=== PATIENT | female | born 1990 | race Caucasian/White ===

== ENCOUNTER 2021-12-10 18:18 | Observation (INO) | payer SELFPAY ==
[2021-12-10] MEDS ORDERED: Ketorolac Tromethamine 30 MG/ML VIAL ONE (19:26)
[2021-12-10] MEDS ORDERED: Midazolam HCl 2 mg/2 ml Vial ONE (19:26)
[2021-12-10] MEDS ORDERED: Piperacillin/Tazobactam 4.5 GM VIAL ONE (19:26)
[2021-12-10 19:55] LABS: #Basophils 0.1 10x3/uL (0.0-0.2); #Eosinphils 0.1 10x3/uL (0.0-0.5); #Monocytes 0.9 10x3/uL (0.0-1.1); #Neutrophils 14.1 10x3/uL (1.5-8.4); %Basophils 0.3 % (0.0-2.0); %Eosinophils 0.3 % (0.0-6.0); %Monocytes 5.3 % (0.0-10.0); %Neutrophils 79.8 % (40.0-75.0); Hemoglobin 11.1 g/dL (12.0-15.5); Mean Corpuscular HGB CONC 32.8 g/dL (32.0-36.0); Mean Corpuscular Hemoglobin 29.9 pg (27.0-33.0); Mean Corpuscular Volume 91.1 fl (81.6-98.3); Mean Platelet Volume 9.3 fl (7.4-10.4); Platelet Count 395 10x3/uL (150-450); RBC Distribution Width 14.1 % (11.5-14.5); Red Blood Cell (RBC) Count 3.71 10x6/uL (3.90-5.03); White Blood Cell (WBC) Count 17.6 10x3/uL (3.5-10.5)
[2021-12-10 19:58] LABS: Lactic Acid 1.2 mmol/L (0.5-2.2)
[2021-12-10 20:04] LABS: ALT (SGPT) 9 U/L (8-55); AST (SGOT) 14 U/L (5-34); Albumin 4.4 g/dL (3.5-5.0); Alkaline Phosphatase 73 U/L (40-110); Anion Gap 14 mmol/L (10-20); BUN (Urea Nitrogen) 12 mg/dL (7.0-18.7); Bilirubin, Total 0.5 mg/dL (0.2-1.2); Calc. Creatinine Clearance 0 mL/min (70-130); Calcium 10.1 mg/dL (7.8-10.44); Carbon Dioxide 27 mmol/L (22-29); Chloride 102 mmol/L (98-107); Globulin 2.9 g/dL (2.4-3.5); Glucose 92 mg/dL (70-105); Potassium 3.9 mmol/L (3.5-5.1); Protein, Total 7.3 g/dL (6.0-8.3); Sodium 139 mmol/L (136-145)
[2021-12-10 20:38] LABS: Bilirubin Negative (Negative); Blood, Urine Negative (Negative); Clarity Clear (Clear); Glucose, Urine (Dipstick) Negative (Negative); Ketone, Urine Negative (Negative); Leukocyte Negative (Negative); Nitrite Negative (Negative); Protein, Urine (Dipstick) Negative (Neg-Trace); Specific Gravity, Urine 1.015 (1.002-1.036); Urobilinogen Normal mg/dL (Less than 2)
[2021-12-10 20:40] LABS: Urine Culture Reflex No No
[2021-12-10 20:42] LABS: Bacteria/HPF 2+ HPF (None Seen); RBC/HPF 0-3 HPF (0-3); Squamous Epithelial 0-3 HPF (0-3); WBC/HPF 0-3 HPF (0-3)
[2021-12-10 20:43] LABS: SARS-CoV-2 NAA Rapid Test Not Detected (NotDetected)
[2021-12-10 22:28] VITALS: BMI 22.4
[2021-12-10] MEDS ORDERED: Acetaminophen 325 MG TAB PO PRN (22:32)
[2021-12-10] MEDS ORDERED: Ondansetron PF 4 MG/2 ML Vial IVP PRN (22:32)
[2021-12-10] MEDS ORDERED: Ondansetron ODT 4 MG TAB PO PRN (22:56)
[2021-12-10] MEDS ORDERED: Piperacillin/Tazobactam 3.375 GM in Sodium Chloride 0.9% 100 ML IVPB SCH ×2 (23:45→23:59)
[2021-12-11] MEDS: Piperacillin/Tazobactam 3.375 GM in Sodium Chloride 0.9% 100 ML IVPB SCH ×3 (00:34→16:09)
[2021-12-11] MEDS ORDERED: Famotidine 20 MG TAB PO SCH (09:00)
[2021-12-11 11:20] VITALS: BP 113/67; TEMP 98.7
[2021-12-11 15:32] LABS: #Eosinphils 0.2 10x3/uL (0.0-0.5); #Monocytes 0.6 10x3/uL (0.0-1.1); #Neutrophils 6.3 10x3/uL (1.5-8.4); %Basophils 0.4 % (0.0-2.0); %Eosinophils 2.2 % (0.0-6.0); %Neutrophils 70.1 % (40.0-75.0); Hemoglobin 8.9 g/dL (12.0-15.5); Mean Corpuscular HGB CONC 31.8 g/dL (32.0-36.0); Mean Corpuscular Hemoglobin 29.7 pg (27.0-33.0); Mean Corpuscular Volume 93.3 fl (81.6-98.3); Mean Platelet Volume 9.2 fl (7.4-10.4); Platelet Count 301 10x3/uL (150-450); RBC Distribution Width 14.5 % (11.5-14.5)
[2021-12-11 23:19] LABS: Chlamydia by PCR Not Detected (NotDetected); GC by PCR Not Detected (NotDetected)
== END 2021-12-11 16:58 | disposition home or self-care (01) ==
LOC: CSHERS 18:18 → CSHPP 21:46 → INTOOBSV 21:46
PROVIDERS: ADMIT Obstetrics & Gynecology; ATTEND Obstetrics & Gynecology
DX: R50.9 Fever, unspecified (principal); R53.81 Other malaise; R10.2 Pelvic and perineal pain; R82.71 Bacteriuria; R30.0 Dysuria; Z20.822 Contact with and (suspected) exposure to COVID-19
CPT/HCPCS: 76856; 80053; 81001; 83605; 84702; 85025; 87040; 87086; 87480; 87491; 87510; 87591; 87660; 93005; 96366; G0378; J1885; J2250; J2543; J3490

== ENCOUNTER 2022-09-26 21:15 | Emergency (ER) | payer OTHER | END 2022-09-26 22:44 | disposition home or self-care (01) | LOC: CSHERS 21:15 | DX: O99.611 Diseases of the digestive system complicating pregnancy, first trimester (principal); K22.6 Gastro-esophageal laceration-hemorrhage syndrome; Z3A.11 11 weeks gestation of pregnancy | CPT/HCPCS: 99283 ==

== ENCOUNTER 2022-10-08 17:37 | Emergency (ER) | payer OTHER ==
[2022-10-08 19:07] LABS: #Eosinphils 0.1 10x3/uL (0.0-0.5); #Monocytes 0.9 10x3/uL (0.0-1.1); #Neutrophils 8.8 10x3/uL (1.5-8.4); %Basophils 0.3 % (0.0-2.0); %Eosinophils 0.9 % (0.0-6.0); %Lymphocytes 22.3 % (18.0-47.0); %Monocytes 6.8 % (0.0-10.0); %Neutrophils 69.3 % (40.0-75.0); Mean Corpuscular HGB CONC 34.8 g/dL (32.0-36.0); Mean Corpuscular Hemoglobin 29.7 pg (27.0-33.0); Mean Corpuscular Volume 85.6 fl (81.6-98.3); Mean Platelet Volume 9.6 fl (7.4-10.4); Platelet Count 326 10x3/uL (150-450); RBC Distribution Width 13.1 % (11.5-14.5); Red Blood Cell (RBC) Count 4.37 10x6/uL (3.90-5.03); White Blood Cell (WBC) Count 12.7 10x3/uL (3.5-10.5)
[2022-10-08 19:09] LABS: ALT (SGPT) 10 U/L (8-55); AST (SGOT) 17 U/L (5-34); Albumin 3.9 g/dL (3.5-5.0); Alkaline Phosphatase 50 U/L (40-110); Anion Gap 16 mmol/L (10-20); BUN (Urea Nitrogen) 13 mg/dL (7.0-18.7); Bilirubin, Total 0.1 mg/dL (0.2-1.2); Calc. Creatinine Clearance 0 mL/min (70-130); Calcium 9.4 mg/dL (7.8-10.44); Carbon Dioxide 20 mmol/L (22-29); Chloride 103 mmol/L (98-107); Estimated GFR 122; Glucose 94 mg/dL (70-105); Magnesium 1.8 mg/dL (1.6-2.6); Potassium 3.9 mmol/L (3.5-5.1); Protein, Total 6.9 g/dL (6.0-8.3); Sodium 135 mmol/L (136-145)
[2022-10-08 19:16] LABS: Bilirubin Neg (Negative); Blood, Urine Negative (Negative); Clarity Clear (Clear); Glucose, Urine (Dipstick) Normal (Negative); Ketone, Urine Negative (Negative); Leukocyte Negative (Negative); Nitrite Negative (Negative); Protein, Urine (Dipstick) Negative (Neg-Trace); Specific Gravity, Urine 1.005 (1.005-1.030); Urobilinogen Normal mg/dL (Less than 2)
== END 2022-10-08 21:20 | disposition home or self-care (01) ==
LOC: CSHERS 17:37
DX: O99.891 Other specified diseases and conditions complicating pregnancy (principal); R00.0 Tachycardia, unspecified; O10.911 Unspecified pre-existing hypertension complicating pregnancy, first trimester; Z3A.13 13 weeks gestation of pregnancy
CPT/HCPCS: 80053; 81003; 83735; 84484; 85025; 85379; 93005; 96360

== ENCOUNTER 2022-10-09 13:31 | Emergency (ER) | payer OTHER | END 2022-10-09 14:13 | disposition home or self-care (01) | LOC: CSHERS 13:31 | DX: O13.1 Gestational [pregnancy-induced] hypertension without significant proteinuria, first trimester (principal); Z3A.13 13 weeks gestation of pregnancy | CPT/HCPCS: 99283 ==

== ENCOUNTER 2022-12-10 08:07 | Day surgery (SDC) | payer BC, OTHER ==
[2022-12-10 08:42] VITALS: BMI 27.1
[2022-12-10] MEDS ORDERED: hydrALAZINE 20 MG/ML VIAL SLOW IVP PRN (09:29)
[2022-12-10 10:09] LABS: Bilirubin Neg (Negative); Blood, Urine Negative (Negative); Clarity Clear (Clear); Glucose, Urine (Dipstick) Normal (Negative); Ketone, Urine Negative (Negative); Leukocyte Negative (Negative); Nitrite Negative (Negative); Protein, Urine (Dipstick) Negative (Neg-Trace); Specific Gravity, Urine 1.005 (1.005-1.030); Urobilinogen Normal mg/dL (Less than 2)
== END 2022-12-10 12:55 | disposition home or self-care (01) ==
LOC: CSHLD/OP 08:07
PROVIDERS: ATTEND Obstetrics & Gynecology
DX: O47.02 False labor before 37 completed weeks of gestation, second trimester (principal); O13.2 Gestational [pregnancy-induced] hypertension without significant proteinuria, second trimester; O30.042 Twin pregnancy, dichorionic/diamniotic, second trimester; Z79.899 Other long term (current) drug therapy; Z3A.22 22 weeks gestation of pregnancy
CPT/HCPCS: 76815; 76817; 81003; 99283

== ENCOUNTER 2023-02-08 22:45 | Day surgery (SDC) | payer BC, OTHER ==
[2023-02-08] MEDS ORDERED: hydrALAZINE 20 MG/ML VIAL SLOW IVP PRN (23:33)
[2023-02-09 00:35] VITALS: BMI 29.1
[2023-02-09 00:37] LABS: Fetal Membranes Rupture No Membranes Rupture (No Rupture)
== END 2023-02-09 00:50 | disposition home or self-care (01) ==
LOC: CSHLD/OP 22:45
PROVIDERS: ATTEND Obstetrics & Gynecology
DX: Z03.71 Encounter for suspected problem with amniotic cavity and membrane ruled out (principal); O47.03 False labor before 37 completed weeks of gestation, third trimester; O21.2 Late vomiting of pregnancy; O13.3 Gestational [pregnancy-induced] hypertension without significant proteinuria, third trimester; Z79.899 Other long term (current) drug therapy; Z3A.30 30 weeks gestation of pregnancy
CPT/HCPCS: 84112; 99283

== ENCOUNTER 2023-03-05 16:18 | Inpatient (IN) | payer BC, OTHER ==
[2023-03-05 17:07] VITALS: BMI 31.4
[2023-03-05] MEDS ORDERED: hydrALAZINE 20 MG/ML VIAL SLOW IVP PRN ×2 (18:46→23:14)
[2023-03-05 21:25] LABS: Bilirubin Neg (Negative); Blood, Urine Negative (Negative); Clarity Clear (Clear); Glucose, Urine (Dipstick) Normal (Negative); Ketone, Urine 50 mg/dL (Negative); Leukocyte Negative (Negative); Nitrite Negative (Negative); Protein, Urine (Dipstick) Negative (Neg-Trace); Urobilinogen Normal mg/dL (Less than 2)
[2023-03-05 21:34] LABS: Bacteria/HPF None Seen HPF (None Seen); CAUTI Indications for Culture Pregnancy; RBC/HPF None Seen HPF (0-3); Squamous Epithelial 0-3 HPF (0-3); WBC/HPF 0-3 HPF (0-3)
[2023-03-05 21:36] LABS: Urine Culture Reflex Yes Yes
[2023-03-05] MEDS ORDERED: Ondansetron PF 4 MG/2 ML Vial IVP PRN (23:14)
[2023-03-05] MEDS ORDERED: Carboprost 250 MCG/ML AMP IM PRN (23:14)
[2023-03-05] MEDS ORDERED: Promethazine HCl 25 MG/ML VIAL IM PRN (23:14)
[2023-03-05] MEDS ORDERED: Misoprostol 200 MCG TAB PR PRN (23:14)
[2023-03-05] MEDS ORDERED: Ibuprofen 800 MG TAB PO PRN (23:20)
[2023-03-05] MEDS ORDERED: Lidocaine 1% (PF) 30 ML VIAL SC PRN (23:20)
[2023-03-05] MEDS ORDERED: Penicillin G Potassium 5 MILL.UNITS in Sodium Chloride 0.9% 100 ML IVPB SCH (23:30)
[2023-03-05] MEDS ORDERED: Lactated Ringer's 1,000 ML IV SCH (23:30)
[2023-03-06] MEDS ORDERED: Bicitra 30 ML UDCUP PO PRN (00:13)
[2023-03-06] MEDS ORDERED: Famotidine/PF 20 mg/2ml Vial SLOW IVP PRN (00:13)
[2023-03-06 00:14] LABS: Hemoglobin 12.2 g/dL (12.0-15.5); Mean Corpuscular HGB CONC 34.5 g/dL (32.0-36.0); Mean Corpuscular Hemoglobin 30.2 pg (27.0-33.0); Mean Corpuscular Volume 87.6 fl (81.6-98.3); Mean Platelet Volume 10.9 fl (7.4-10.4); Platelet Count 244 10x3/uL (150-450); RBC Distribution Width 14.7 % (11.5-14.5); Red Blood Cell (RBC) Count 4.04 10x6/uL (3.90-5.03); White Blood Cell (WBC) Count 10.7 10x3/uL (3.5-10.5)
[2023-03-06] MEDS ORDERED: CEFAZOLIN 2 GM in Sodium Chloride 0.9% 100 ML IVPB SCH (00:15)
[2023-03-06 00:43] LABS: HBSAg Index 0.18 S/CO (0-0.99); Hep B Surf Ag - L&D Non-Reactive S/CO (NonReactive)
[2023-03-06 00:44] LABS: Syphilis Antibody Nonreactive (Nonreactive); Syphilis Antibody Index 0.03 S/CO (<1.00 Non-Reactive)
[2023-03-06] MEDS: Penicillin G 2.5 MILL.units 2.5 MILL.UNITS in Premix Bag 1 BAG IVPB SCH ×2 (04:20→09:35)
[2023-03-07] MEDS: Lactated Ringer's 1,000 ML IV SCH ×3 (07:31→13:18)
[2023-03-07] MEDS: Penicillin G 2.5 MILL.units 2.5 MILL.UNITS in Premix Bag 1 BAG IVPB SCH ×3 (07:31→13:18)
[2023-03-08] MEDS: Betamet Acet/Betamet Na Ph 30 MG/5 ML VIAL IM SCH (09:44)
[2023-03-09] MEDS: Betamet Acet/Betamet Na Ph 30 MG/5 ML VIAL IM SCH (08:24)
[2023-03-09] MEDS: Penicillin G 2.5 MILL.units 2.5 MILL.UNITS in Premix Bag 1 BAG IVPB SCH ×2 (08:24→08:25)
[2023-03-10] MEDS: Penicillin G 2.5 MILL.units 2.5 MILL.UNITS in Premix Bag 1 BAG IVPB SCH ×2 (07:28→07:29)
[2023-03-10 07:41] VITALS: BP 125/64; TEMP 98
== END 2023-03-10 09:20 | disposition home health service (06) | DRG 833 ==
LOC: CSHLD/OP 16:18 → CSHLD 03-06 00:26 → CSHANTE 03-07 09:32
PROVIDERS: ADMIT Obstetrics & Gynecology; ATTEND Obstetrics & Gynecology
DX: O60.03 Preterm labor without delivery, third trimester (principal); O13.3 Gestational [pregnancy-induced] hypertension without significant proteinuria, third trimester; Z3A.34 34 weeks gestation of pregnancy; Z79.82 Long term (current) use of aspirin; Z79.899 Other long term (current) drug therapy; O30.043 Twin pregnancy, dichorionic/diamniotic, third trimester
CPT/HCPCS: 36415; 76819; 81001; 85027; 86780; 86850; 86900; 86901; 87086; 87340; 99285; J0702; J2540; J3490

== ENCOUNTER 2023-03-19 11:21 | Inpatient (IN) | payer BC, OTHER ==
[2023-03-19] MEDS ORDERED: Ondansetron PF 4 MG/2 ML Vial IVP PRN ×2 (15:39→16:59)
[2023-03-19] MEDS ORDERED: Misoprostol 200 MCG TAB PR PRN (15:39)
[2023-03-19] MEDS ORDERED: Tranexamic Acid 1,000 MG/10 ML VIAL IVP PRN (15:39)
[2023-03-19] MEDS ORDERED: Lidocaine 1% (PF) 30 ML VIAL SC PRN (15:39)
[2023-03-19] MEDS ORDERED: Promethazine HCl 25 MG/ML VIAL IM PRN ×2 (15:39→16:59)
[2023-03-19] MEDS ORDERED: fentaNYL 50 mcg/mL 1 mL Vial SLOW IVP PRN (15:39)
[2023-03-19] MEDS ORDERED: Ibuprofen 800 MG TAB PO PRN (15:39)
[2023-03-19] MEDS ORDERED: Carboprost 250 MCG/ML AMP IM PRN (15:39)
[2023-03-19] MEDS ORDERED: hydrALAZINE 20 MG/ML VIAL SLOW IVP PRN (15:39)
[2023-03-19] MEDS ORDERED: HYDROcodone/Acetaminophen 5/325 mg Tablet PO PRN ×2 (15:39)
[2023-03-19] MEDS ORDERED: NS w/ Oxytocin 30 units 500 ML IV SCH (15:45)
[2023-03-19] MEDS ORDERED: Lactated Ringer's 1,000 ML IV SCH (15:45)
[2023-03-19] MEDS ORDERED: fentaNYL/Ropivacaine Epidural 100 ML ONE (16:09)
[2023-03-19 16:12] LABS: Hematocrit 36.1 % (34.9-44.5); Hemoglobin 12.6 g/dL (12.0-15.5); Mean Corpuscular HGB CONC 34.9 g/dL (32.0-36.0); Mean Corpuscular Hemoglobin 30.1 pg (27.0-33.0); Mean Corpuscular Volume 86.2 fl (81.6-98.3); Mean Platelet Volume 11.2 fl (7.4-10.4); Platelet Count 264 10x3/uL (150-450); Red Blood Cell (RBC) Count 4.19 10x6/uL (3.90-5.03); White Blood Cell (WBC) Count 11.4 10x3/uL (3.5-10.5)
[2023-03-19 16:49] LABS: HBSAg Index 0.19 S/CO (0-0.99); Hep B Surf Ag - L&D Non-Reactive S/CO (NonReactive)
[2023-03-19 16:58] LABS: Syphilis Antibody Nonreactive (Nonreactive); Syphilis Antibody Index 0.03 S/CO (<1.00 Non-Reactive)
[2023-03-19] MEDS ORDERED: ePHEDrine Sulfate 50 MG/10 ML VIAL SLOW IVP PRN (16:59)
[2023-03-19] MEDS ORDERED: diphenhydrAMINE 50 MG/ML VIAL IVP PRN (16:59)
[2023-03-19] MEDS ORDERED: Lactated Ringer's 500 ML IV PRN (16:59)
[2023-03-19] MEDS ORDERED: Moisturizing Cream (Eucerin) 113 GM JAR TOP PRN (16:59)
[2023-03-19] MEDS ORDERED: Naloxone HCl 0.4 mg/ml Vial IVP PRN ×2 (16:59)
[2023-03-19] MEDS ORDERED: fentaNYL 2 mcg/Ropivacaine 0.2% Epidural 100 ML CADD EPIDURAL SCH (17:00)
[2023-03-19] MEDS ORDERED: Communication Order-Pharmacy FS SCH (17:00)
[2023-03-19] MEDS: NS w/ Oxytocin 30 units 500 ML IV SCH (17:30)
[2023-03-19] MEDS ORDERED: Calcium Carbonate 500 MG ChewTAB PO PRN (19:41)
[2023-03-19] MEDS ORDERED: Labetalol HCl 100 MG TAB PO SCH (21:00)
[2023-03-19] MEDS ORDERED: Misoprostol 200 MCG TAB ONE (23:11)
[2023-03-19] MEDS ORDERED: Tranexamic Acid 1,000 MG/10 ML VIAL ONE (23:12)
[2023-03-19] MEDS ORDERED: Carboprost 250 MCG/ML AMP ONE (23:12)
[2023-03-20] MEDS ORDERED: Methylergonovine 0.2 MG/ML VIAL ONE (00:24)
[2023-03-20] MEDS ORDERED: Carboprost 250 MCG/ML AMP ONE (00:24)
[2023-03-20 00:56] LABS: pH (Cord, venous) 7.425 (7.250-7.350)
[2023-03-20] MEDS ORDERED: Boostrix 0.5 ML (Tdap) VIAL (>/=7 yrs of age) IM ONE (00:57)
[2023-03-20] MEDS ORDERED: Lanolin Ointment 7 GM TUBE TOP PRN (00:57)
[2023-03-20] MEDS ORDERED: Bisacodyl 10 MG SUPP PR PRN (00:57)
[2023-03-20] MEDS ORDERED: hydrALAZINE 20 MG/ML VIAL SLOW IVP PRN (00:57)
[2023-03-20] MEDS ORDERED: Benzocaine-Menthol 82.5 ML CAN TOP PRN (00:57)
[2023-03-20] MEDS ORDERED: Milk Of Magnesia 30 ML UDCUP PO PRN (00:57)
[2023-03-20] MEDS ORDERED: diphenhydrAMINE 25 MG CAP PO PRN (00:57)
[2023-03-20] MEDS: NS w/ Oxytocin 30 units 500 ML IV SCH ×2 (01:42→01:53)
[2023-03-20] MEDS ORDERED: NS w/ Oxytocin 30 units 0 ML ONE (04:13)
[2023-03-20] MEDS: Ibuprofen 800 MG TAB PO SCH ×3 (06:23→21:15)
[2023-03-20] MEDS ORDERED: Tranexamic Acid 1,000 MG/10 ML VIAL IVP SCH (06:45)
[2023-03-20] MEDS ORDERED: Misoprostol 200 MCG TAB PR SCH (06:45)
[2023-03-20] MEDS ORDERED: Methylergonovine 0.2 MG/ML VIAL IM SCH (06:45)
[2023-03-20] MEDS ORDERED: Tranexamic Acid 1,000 MG in Sodium Chloride 0.9% 250 ML 250 ML IVPB SCH (06:45)
[2023-03-20 08:29] LABS: Hematocrit 29.7 % (34.9-44.5); Hemoglobin 10.1 g/dL (12.0-15.5); Mean Corpuscular Hemoglobin 29.5 pg (27.0-33.0); Mean Corpuscular Volume 86.8 fl (81.6-98.3); Mean Platelet Volume 10.9 fl (7.4-10.4); Platelet Count 208 10x3/uL (150-450); RBC Distribution Width 13.8 % (11.5-14.5); Red Blood Cell (RBC) Count 3.42 10x6/uL (3.90-5.03); White Blood Cell (WBC) Count 18.6 10x3/uL (3.5-10.5)
[2023-03-20] MEDS: Prenatal Vitamin 1 TAB PO SCH (09:24)
[2023-03-20] MEDS: Ferrous Sulfate 325 MG TAB PO SCH ×2 (09:24→17:25)
[2023-03-20] MEDS: Docusate 100 MG CAP PO SCH ×2 (09:25→21:15)
[2023-03-20] MEDS: Acetaminophen 325 MG TAB PO PRN ×2 (09:25→17:25)
[2023-03-21 05:05] LABS: Hematocrit 23.8 % (34.9-44.5); Mean Corpuscular HGB CONC 33.6 g/dL (32.0-36.0); Mean Corpuscular Hemoglobin 29.6 pg (27.0-33.0); Mean Corpuscular Volume 88.1 fl (81.6-98.3); Mean Platelet Volume 10.7 fl (7.4-10.4); Platelet Count 179 10x3/uL (150-450); RBC Distribution Width 14.4 % (11.5-14.5); White Blood Cell (WBC) Count 12.7 10x3/uL (3.5-10.5)
[2023-03-21] MEDS: Ibuprofen 800 MG TAB PO SCH ×3 (06:07→21:29)
[2023-03-21] MEDS: Docusate 100 MG CAP PO SCH ×2 (09:58→21:29)
[2023-03-21] MEDS: Ferrous Sulfate 325 MG TAB PO SCH ×2 (09:59→17:40)
[2023-03-21] MEDS: Prenatal Vitamin 1 TAB PO SCH (09:59)
[2023-03-21] MEDS: Acetaminophen 325 MG TAB PO PRN ×2 (10:09→19:35)
[2023-03-22] MEDS: Ibuprofen 800 MG TAB PO SCH (05:34)
[2023-03-22 07:38] VITALS: BP 133/90; TEMP 98
[2023-03-22] MEDS: Ferrous Sulfate 325 MG TAB PO SCH (09:05)
[2023-03-22] MEDS: Docusate 100 MG CAP PO SCH (09:05)
[2023-03-22] MEDS: Prenatal Vitamin 1 TAB PO SCH (09:05)
== END 2023-03-22 12:55 | disposition home or self-care (01) | DRG 805 ==
LOC: CSHLD/OP 11:21 → CSHLD 15:41 → CSHPP 03-20 03:35
PROVIDERS: ADMIT Obstetrics & Gynecology; ATTEND Obstetrics & Gynecology
PROC: 10E0XZZ Delivery of Products of Conception, External Approach (ICD-10-PCS; principal; 2023-03-20)
PROC: 10D07Z8 Extraction of Products of Conception, Other, Via Natural or Artificial Opening (ICD-10-PCS; 2023-03-20)
PROC: 0HQ9XZZ Repair Perineum Skin, External Approach (ICD-10-PCS; 2023-03-20)
DX: O30.043 Twin pregnancy, dichorionic/diamniotic, third trimester (principal); O60.14X0 Preterm labor third trimester with preterm delivery third trimester, not applicable or unspecified; Z37.2 Twins, both liveborn; O10.92 Unspecified pre-existing hypertension complicating childbirth; D62 Acute posthemorrhagic anemia; O70.0 First degree perineal laceration during delivery; Z3A.36 36 weeks gestation of pregnancy
CPT/HCPCS: 36415; 51702; 82805; 85027; 86780; 86850; 86900; 86901; 87340; 88307; 99285; J2210; J2405; J2590